=== PATIENT | female | born 1980 | race Caucasian/White ===

== ENCOUNTER 2016-05-09 21:22 | Emergency (ER) | payer SELFPAY ==
[~2016-05-09] VITALS: Ht 172.7 cm; Wt 85.5 kg
[~2016-05-09 21:22] MED LIST: MOTRIN600 MG PO; NORCO 5/3251 TABLET PO
[2016-05-09 21:51] LABS: ADD MIUA? YES; BILIRUBIN NEGATIVE; BLOOD NEGATIVE; COLOR YELLOW ((YELLOW)); GLUCOSE (STRIP) NEGATIVE; KETONES NEGATIVE; LEUKOCYTES NEGATIVE; NITRITE NEGATIVE; PROTEIN (STRIP) NEGATIVE; SPECIFIC GRAVITY 1.017 (1.000-1.030); UROBILINOGEN 0.2 MG/DL (0.2-1.0)
[2016-05-09 21:59] LABS: BACTERIA 2+ /HPF; EPITHELIAL CELLS 1+ /HPF; MUCUS NONE SEEN /LPF; RED BLOOD CELLS 0-5 /HPF (0-5); UCUL ADDED? NO; WHITE BLOOD CELLS 0-5 /HPF (0-5)
[2016-05-09 21:59] LABS: BASOPHIL COUNT 0.1 K/uL (0-0.1); EOSINOPHIL (%) 2.6 % (0-5); EOSINOPHIL COUNT 0.3 K/uL (0-0.3); HEMATOCRIT 40.5 % (36.0-46.0); IMMATURE GRANULOCYTE (%) 0.2 % (0.0-0.7); IMMATURE GRANULOCYTE COUNT 0.2 K/uL; LYMPHOCYTE COUNT 2.7 K/uL (1.0-2.8); MCH 30.4 PG (29.0-34.0); MCHC 34.6 G/DL (30.0-36.0); MEAN PLAT.VOLUME 9.7 uM^3 (9.5-12.4); MONOCYTE (%) 5.4 % (3-12); MONOCYTE COUNT 0.5 K/uL (0-0.8); NEUTROPHIL (%) 63.1 % (45-76); NEUTROPHIL COUNT 6.1 K/uL (1.8-6.4); PLATELET COUNT 322 K/uL (156-360); RBC DIS.WIDTH-CV 12.8 % (11.8-14.6); RBC DIS.WIDTH-SD 40.4 % (39-53); WHITE BLOOD COUNT 9.6 K/uL (4.1-10.2)
[2016-05-09 22:10] LABS: CHLORIDE 105 mEq/L (99-109); POTASSIUM 4.3 mEq/L (3.7-5.4); SODIUM 141 mEq/L (136-147)
[2016-05-09 22:12] LABS: GLUCOSE 87 mg/dL (70-99)
[2016-05-09 22:13] LABS: ANION GAP 9 MEQ/L (2-14)
[2016-05-09 22:14] LABS: TOTAL BILIRUBIN 0.5 mg/dL (0.0-1.0)
[2016-05-09 22:15] LABS: ALKALINE PHOSPHATASE 65 IU/L (3-129); GFR ESTIMATE (CALCULATED) > 59 mL/min/
[2016-05-09 22:17] LABS: UREA NITROGEN (BUN) 14 mg/dL (9-23)
[2016-05-09 22:27] LABS: QUANTITATIVE HCG < 4.0 MIU/ML
[2016-05-10] MEDS ORDERED: PERCOCET 5/31 TABLET PO (00:59)
[2016-05-10] MEDS ORDERED: ZOFRAN ODT4 MG PO (00:59)
[2016-05-10 01:41] VITALS: BP 138/91
== END 2016-05-10 01:45 | disposition home or self-care (01) ==
LOC: EME 21:22
PROVIDERS: Physician Assistant
DX: N83.202 Unspecified ovarian cyst, left side (principal); R10.30 Lower abdominal pain, unspecified
CPT/HCPCS: 74177; 76856; 80053; 81003; 84702; 85025; 85027; 99281; 99285; J2405; J3010; J7030